=== PATIENT | female | born 1945 | race Hispanic/Latino ===

== ENCOUNTER 2022-07-25 17:16 | Emergency (ER) | payer MEDICARE, MEDICAID, SELFPAY ==
--- NOTE | 2022-07-25 17:42 | ED.SKABFB ---
HPI - Skin/Abscess/Foreign Bdy General Chief complaint: Skin/Abscess/Foreign Body Stated complaint: Rash all Over Body Time Seen by Provider: 07/25/22 17:43 Source: patient and RN notes reviewed Mode of arrival: ambulatory Limitations: no limitations History of Present Illness HPI narrative: 77-year-old female presents to the [facility] with complaints of rash a rash to her neck and arms. Nothing on her chest and abdomen or back. Denies anything on her arms. States the rash has been there for over 2 weeks. Has been applying Benadryl cream with no relief. Denies any chest pain, shortness of breath. Denies any new clothes. No new detergents, creams, ointments. Offered phone hearings reporter, patient declined wanted to use her brother. Related Data Home Medications Medication Instructions Recorded Confirmed benazepril 20 mg tablet 20 mg PO DAILY 07/25/22 07/25/22 celecoxib 200 mg capsule 200 mg PO DIRECTED 07/25/22 07/25/22 chlorthalidone 25 mg tablet 25 mg PO DAILY 07/25/22 07/25/22 diclofenac sodium 1 % topical gel 1 ea topical DIRECTED 07/25/22 07/25/22 famotidine 40 mg tablet 40 mg PO DAILY 07/25/22 07/25/22 gabapentin 300 mg capsule 300 mg PO BID 07/25/22 07/25/22 lansoprazole 30 mg capsule,delayed 30 mg PO DAILY 07/25/22 07/25/22 release metformin 500 mg tablet 500 mg PO DAILY 07/25/22 07/25/22 metoprolol succinate 25 mg 25 mg PO DAILY 07/25/22 07/25/22 tablet,extended release 24 hr oxybutynin chloride 5 mg tablet 5 mg PO DAILY 07/25/22 07/25/22 simvastatin 40 mg tablet 40 mg PO DAILY 07/25/22 07/25/22 Allergies Allergy/AdvReac Type Severity Reaction Status Date / Time No Known Allergies Allergy Verified 07/25/22 17:29 Review of Systems Review of Systems: All systems reviewed & are unremarkable except as noted in HPI and below Constitutional: Constitutional: Reports no additional constitutional complaints, Denies chills and Denies fever(s) Eyes: Eyes: Reports no additional eye complaints ENT: Reports system reviewed and no additional complaints, except as documented Cardiovascular: Cardiovascular: Reports no additional cardiovascular complaints Respiratory: Respiratory: Reports no additional respiratory complaints Gastrointestinal: Gastrointestinal: Reports no additional gastrointestinal complaints Musculoskeletal: Musculoskeletal: Reports no additional musculoskeletal complaints Integumentary/Breasts: Skin/Breast: Reports as per HPI and Reports rash Neurologic: Reports system reviewed and no additional complaints, except as documented Psychiatric: Psychiatric: Reports no additional psychiatric complaints Allergic/Immunologic: Allergic/Immunologic: Reports no additional allergic/immunologic complaints [facility] Past Medical History Medical History (Updated 07/26/22 @ 14:58 by Antonia Sow APRN) Diabetes High cholesterol History of high blood pressure Family History Family History Other Diabetes mellitus Family history of cardiovascular disease Family history of kidney disease Family history of osteoarthritis Hypertension Social History Social History Alcohol intake: never Comments At the time of my signature, I reviewed and agree with the nursing past medical, surgical, social, and family history. There is no relevant family history pertinent to the patient complaint. Exam Const: General: healthy appearing, no acute distress and alert Nutritional Appearance: well nourished Orientation/consciousness: patient oriented x3 Limitations: no limitations HENMT: Head: normal to inspection Ears: external ears normal, TM's normal bilaterally and EAC's normal Face and sinus: normal facial exam and sinuses nontender Mouth: Yes Normal oral and palatal mucosa present, Yes lip normal and Yes moist mucous membranes Throat: posterior oropharynx normal and uvula midline Ey
[2022-07-25 17:46] VITALS: BP 161/63; PULSE 64; RESP 18; TEMP 36.3; O2SAT 99
[2022-07-25 18:52] VITALS: BP 161/63; PULSE 64; RESP 18; TEMP 36.3; O2SAT 99
== END 2022-07-25 18:15 | disposition home or self-care (01) ==
PROVIDERS: Emergency Provider Nurse Practitioner; PCP Registered Nurse
DX: R21 Rash and other nonspecific skin eruption (principal); E11.9 Type 2 diabetes mellitus without complications; E78.00 Pure hypercholesterolemia, unspecified; I10 Essential (primary) hypertension; Z79.84 Long term (current) use of oral hypoglycemic drugs
CPT/HCPCS: 99213; G0463